=== PATIENT | male | born 1965 | race Caucasian/White ===

== ENCOUNTER 2019-06-08 01:48 | Emergency (ER) | payer MEDICAID ==
[~2019-06-08] VITALS: Ht 170.2 cm; Wt 91.0 kg
[2019-06-08 01:52] VITALS: BP 135/97
[2019-06-08 08:09] LABS: HEMATOCRIT. 41.5 % (42.0-52.0); HEMOGLOBIN. 14.3 g/dL (14.0-18.0); MEAN CORPUSCULAR VOLUME 86.9 fL (80.0-94.0); MEAN PLATELET VOLUME 7.6 fl (7.4-10.4); PLATELET 253 x1000/uL (130-400); RED BLOOD CELL COUNT 4.77 mill/uL (4.7-6.1); RED CELL DISTRIBUTION WIDTH 13.7 % (11.6-14.6)
[2019-06-08 08:16] LABS: CHLORIDE 106 mEq/L (98-107)
[2019-06-08 08:20] LABS: ETHANOL BLOOD < 10 mg/dL
[2019-06-08 08:54] LABS: PLATELET ESTIMATE NORMAL
== END 2019-06-08 05:42 | disposition home or self-care (01) ==
LOC: ER 01:48
DX: F32.9 Major depressive disorder, single episode, unspecified (principal); I50.9 Heart failure, unspecified; I25.2 Old myocardial infarction; G40.909 Epilepsy, unspecified, not intractable, without status epilepticus; F17.210 Nicotine dependence, cigarettes, uncomplicated
CPT/HCPCS: 36415; 80053; 80320; 85025; 93005; 99284; G0480